=== PATIENT | female | born 1935 | race Caucasian/White ===

== ENCOUNTER 2019-01-30 12:31 | Inpatient (IN) | payer MEDICARE, BC ==
[~2019-01-30] VITALS: Ht 160 cm; Wt 58.5 kg
--- NOTE | 2019-01-30 12:45 | NUR ---
GPS/RN-NOTES ADMITTED 83 Y.O FEMALE PATIENT [facility]. PATIENT ON 5150 FOR GD ADULT. UPON FACE TO FACE ASSESSMENT,PATIENT IS ALERT ORIENTED X2 ,DELUSIONAL AT TIMES . STATED" I JUST HAVE BABY JUST NOW,I ALWAYS TALK TO MY MOTHER WHICH IS ALREADY ".PATIENT IS AMBULATORY WITH STEADY GAIT. PATIENT REFUSED FULL BODY ASSESSMENT, [employer] LIBRARIAN ABLE TO TAKE BOTH HANDS AND RIGHT LOWER LEG PHOTOS. PATIENT REFUSED MRSA NARES SWAB AT THIS TIME. DR. THOMAS MADE AWARE OF THE ADMISSION WITH ORDERS,ALSO DR. SHARMA MADE AWARE AND SEEN THE PATIENT IN THE UNIT. PATIENT RYNE RAI MADE AWARE OF PATIENT DISCHARGE.CONTRABAND DONE,PATIENT REFUSED TO GIVE X1 WRIST WATCH AND X1 YELLOW RING TO THE STAFF FOR SAFE. PATIENT WAS ORIENTED IN THE UNIT AND UNIT POLICIES. PATIENT'S RIGHT WAS REVIEWED WITH PATIENT AND BOOKLET WAS GIVEN TO THE PATIENT. ALL NEEDS ATTENDED AND ANTICIPATED. WILL CONT. MONITORING Q15 MINS. FOR SAFETY AND BEHAVIOR.
[2019-01-30] MEDS ORDERED: MAG HYDROX/AL HYDROX/SIMETH 30 ML UDC PO PRN (14:00)
[2019-01-30] MEDS ORDERED: ACETAMINOPHEN 325 MG TABLET PO PRN (14:00)
[2019-01-30] MEDS ORDERED: MAGNESIUM HYDROXIDE 30 ML UDC PO PRN (14:00)
[2019-01-30] MEDS: LORAZEPAM 0.5 MG TABLET PO PRN (15:07)
--- NOTE | 2019-01-30 15:14 | NUR ---
GPS/RN-NOTES NOTED PATIENT WITH AGGRESSIVE BEHAVIOR GRABBING STAFF HANDS ,DELUSIONAL STATED" I JUST HAVE MY BABY JUST NOW" .REDIRECTED AND REORIENTED PATIENT. ATIVAN I MG P.O GIVEN PRN ORDER. WILL CONT. MONITORING FOR SAFETY AND BEHAVIOR.
[2019-01-30 16:00] VITALS: BP 155/95
--- NOTE | 2019-01-30 17:51 | NUR ---
GPS/RN-NOTES MRSA SWAB DONE AND SEND TO THE LAB.
[2019-01-30 20:09] VITALS: BP 109/66
[2019-01-31 08:00] VITALS: BP 159/97
[2019-01-31 08:06] LABS: CHOLESTEROL 245 mg/dL (<200); HDL CHOLESTEROL 135 mg/dL (40-60); LDL 98 mg/dL (0-99); TRIGLYCERIDES 35 mg/dL (30-150)
[2019-01-31 08:09] LABS: ALANINE AMINOTRANSFERASE 25 U/L (12-78); ALBUMIN 3.5 g/dL (3.4-5.0); ALKALINE PHOSPHATASE 73 U/L (46-116); ASPARTATE AMINOTRANSFERASE 30 U/L (15-37); BILIRUBIN,TOTAL 0.6 mg/dL (0.2-1.0); CALCIUM, SERUM 9.2 mg/dL (8.5-10.1); CARBON DIOXIDE 28 mmol/L (21-32); CHLORIDE 104 mmol/L (98-107); CREATININE 0.8 mg/dL (0.6-1.3); GLUCOSE 83 mg/dL (74-106); SODIUM SERUM 142 mmol/L (136-145); TOTAL PROTEIN, SERUM 7.1 g/dL (6.4-8.2); UREA NITROGEN, BLOOD 20 mg/dL (7-18)
--- NOTE | 2019-01-31 10:50 | NUR ---
SW called the pt's , Hosea ([phone]), and left a message on his voicemail stating that the pt's SW is the one making the contact and that she would like to discuss the pt's initial discharge plan as well as provide the opportunity for the pt's to address any questions or concerns.
--- NOTE | 2019-01-31 10:59 | NUR ---
Initial Discharge Plan: Pt currently resides in her home with her , Hosea ([phone]), located at [address] [place] [address]; ([phone]). Per pt, she would like to return to her home as soon as possible. ELVA will work with the MD and the pt regarding appropriate discharge planning. SW will form a safe and proper discharge.
[2019-01-31] MEDS: VALSARTAN 80 MG TABLET PO SCH (13:00)
--- NOTE | 2019-01-31 13:12 | NUR ---
Hosea ([phone]), pt's , called the SW back and the initial discharge plan was discussed. SW asked whether or not their home was a safe environment for the pt and the pt's said that it was and then it was discussed that the pt have more appointments with her outpatient team. Upon discharge, the pt's stated that he would be willing to pick her up.
[2019-01-31] MEDS: HYDROCHLOROTHIAZIDE 25 MG TABLET PO SCH (13:48)
--- NOTE | 2019-01-31 13:50 | NUR ---
NURSING NOTE: PT IN THE HALLWAY, OFFERED TO TAKE HER BP MEDS, PT ONLY TOOK HCTZ AND REFUSED DIOVAN, STATING "I'LL TAKE IT LATER, I DON'T NEED IT NOW". BP 159/97, HR 77. WILL CONTINUE TO MONITOR.
[2019-01-31] MEDS ORDERED: OLANZAPINE 10 MG VIAL IM STA (14:11)
[2019-01-31] MEDS ORDERED: LORAZEPAM INJ 2 MG/ML VIAL IM STA (14:11)
--- NOTE | 2019-01-31 14:28 | NUR ---
ELVA called the pt's , Hosea ([phone]), and asked him about the pt's prior history such as her prior hospitalizations and the medications that she has been on. ELVA will pass this information on to the pt's psychiatrist on the following day.
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
[2019-01-31 16:00] VITALS: BP 121/75
[2019-01-31 19:50] VITALS: BP 146/86
[2019-01-31] MEDS: OLANZAPINE 5 MG/TAB.RAPDIS PO SCH (21:00)
--- NOTE | 2019-01-31 21:17 | NUR ---
GP-RN NOTES: PATIENT REFUSED SCHEDULED MED ZYPREXA OFFERED X3, DESPITE OF EDUCATION. PATIENT STATED "I DON'T WANT IT, I DON'T NEED IT, I HAVE MY MEDICATION AT HOME. PATIENT STRONGLY REFUSED.
--- NOTE | 2019-01-31 22:00 | NUR ---
PATIENT DIAL 911 AND CALLED CAR HIKER SAYING I AM HAVING EMERGENCY HERE. CAR HIKER CAME AND ASSESS THE PATIENT. PATIENT STATED MY CLOTHS ARE MISSING. THEN CAR HIKER SAID TO THE PATIENT YOU NOT SUPPOSE TO CALL 911 FOR THIS AFTER TALK TO PATIENT CAR HIKER LEFT NURSING OIL LEASE OPERATOR NOTIFY.
[2019-01-31] MEDS: ZOLPIDEM TARTRATE 5 MG TABLET PO PRN (22:08)
[2019-02-01 08:00] VITALS: BP 144/94
[2019-02-01] MEDS: HYDROCHLOROTHIAZIDE 25 MG TABLET PO SCH (09:29)
[2019-02-01] MEDS: OLANZAPINE 5 MG/TAB.RAPDIS PO SCH ×2 (09:29→20:36)
[2019-02-01] MEDS: VALSARTAN 80 MG TABLET PO SCH (09:30)
--- NOTE | 2019-02-01 10:54 | NUR ---
ELVA called the pt's , Hosea ([phone]), and informed him that he can no longer visit outside of visiting hours due to the effect that it has on the pt and the lack of staff available to calm her down after all of it. ELVA informed him that he would have to come during the specific visiting hours and that he can give her a call back in case of any questions.
[2019-02-01 16:00] VITALS: BP 122/76
[2019-02-01 19:48] VITALS: BP 155/89
[2019-02-01 20:00] VITALS: BP 155/89
--- NOTE | 2019-02-01 20:37 | NUR ---
GPS/FISHER HAND LINE NOTES: PT. REFUSED HS MEDS. OFFERED 3X. EXPLAINED RISK AND BENEFITS. PT. STILL REFUSED. WILL CONTINUE TO MONITOR Q 15MIN FOR SAFETY AND BEHAVIOR.
[2019-02-02] MEDS: OLANZAPINE 5 MG/TAB.RAPDIS PO SCH ×3 (08:24→21:00)
[2019-02-02] MEDS: HYDROCHLOROTHIAZIDE 25 MG TABLET PO SCH (08:28)
[2019-02-02] MEDS: VALSARTAN 80 MG TABLET PO SCH (08:28)
--- NOTE | 2019-02-02 09:48 | NUR ---
WOUND CARE CONSULT: PT PRESENTS AMBULATORY AND CONTINENT WITH SKIN TEAR TO LEFT FOREARM, PRESENT ON ADMISSION. RECOMMENDATIONS MADE FOR WOUND CARE. DISCUSSED WITH NURSING STAFF. WILL SEE PRTraci . CURRENT SANCHEZ SCORE IS 21. Addendum: 02/02/19 at 0949 by SUAD GONZALEZ WNDNU Amended: Links added.
--- NOTE | 2019-02-02 09:59 | NUR ---
GPS MILL WORKER: NOTES TX DONE TO SKIN TEAR ORDERED.
[2019-02-02 16:00] VITALS: BP 118/82
[2019-02-02] MEDS: ZOLPIDEM TARTRATE 5 MG TABLET PO PRN (20:37)
--- NOTE | 2019-02-02 22:35 | NUR ---
AT 2100, REFUSED OLANZAPINE 5 MG ROUTINE NIGHT MEDICATION. EXPLAINED BENEFITS X2, PATIENT WAS VERY SARCASTIC, STILL REFUSED.
[2019-02-03 08:00] VITALS: BP 159/94
[2019-02-03] MEDS: OLANZAPINE 5 MG/TAB.RAPDIS PO SCH ×2 (08:30→21:00)
[2019-02-03] MEDS: VALSARTAN 80 MG TABLET PO SCH (08:30)
[2019-02-03] MEDS: HYDROCHLOROTHIAZIDE 25 MG TABLET PO SCH (08:30)
[2019-02-03 16:00] VITALS: BP 99/72
--- NOTE | 2019-02-03 22:13 | NUR ---
PATIENT REFUSED HER OLANZAPINE 2.5 MG TONIGHT, STATED," NO THANK YOU, NOT TONIGHT."
[2019-02-04 08:00] VITALS: BP 159/97
[2019-02-04] MEDS: HYDROCHLOROTHIAZIDE 25 MG TABLET PO SCH (09:00)
[2019-02-04] MEDS: OLANZAPINE 5 MG/TAB.RAPDIS PO SCH ×2 (09:00→21:00)
[2019-02-04] MEDS: VALSARTAN 80 MG TABLET PO SCH ×2 (09:00→09:28)
--- NOTE | 2019-02-04 09:30 | NUR ---
GPS RN NOTE: PATIENT REFUSED AM MEDICATION ZYPREXA, HYDROCHLOROTHIAZIDE AND DIOVAN. PATIENT PARANOID, DELUSIONAL AND WANTED HER MEDICATION PRESCRIBED BY HER OWN DOCTOR FROM [facility]. EXPLAINED THE RISK AND BENEFITS X 3 ATTEMPT BUT PATIENT STILL REFUSED. CN ATTEMPTED TO OFFER BUT PATIENT STILL REFUSED. WILL CONTINUE TO MONITOR [id number] FOR SAFETY
[2019-02-04] MEDS: LORAZEPAM 0.5 MG TABLET PO PRN (12:00)
[2019-02-04 16:00] VITALS: BP 150/94
[2019-02-04 19:28] VITALS: BP 123/75
[2019-02-05 08:00] VITALS: BP 126/71
[2019-02-05] MEDS: OLANZAPINE 5 MG/TAB.RAPDIS PO SCH ×2 (09:09→21:24)
[2019-02-05] MEDS: VALSARTAN 80 MG TABLET PO SCH (09:10)
[2019-02-05] MEDS: HYDROCHLOROTHIAZIDE 25 MG TABLET PO SCH (09:10)
--- NOTE | 2019-02-05 12:05 | NUR ---
ELVA called the pt's , Hosea ([phone]), and informed him that the pt is going to be having a Probable Cause Hearing today which means that a cabinet worker from [facility] would arrive at the unit and look through the pt's chart to determine whether or not the pt should continue to be on her hold. ELVA informed the pt's that he is more than welcome to join the hearing and advocate for the pt and himself. Pt's stated that he would not be available for the hearing but that he would like to be updated in terms of the outcome.
[2019-02-05 16:00] VITALS: BP 135/80
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
[2019-02-05] MEDS: LORAZEPAM 0.5 MG TABLET PO PRN (18:05)
--- NOTE | 2019-02-05 18:06 | NUR ---
RN-CO: ATIVAN 1 MG PO FOR AGITATION GIVEN.
[2019-02-05 19:38] VITALS: BP 116/78
[2019-02-06 08:00] VITALS: BP 105/57
[2019-02-06] MEDS: VALSARTAN 80 MG TABLET PO SCH (09:00)
[2019-02-06] MEDS: HYDROCHLOROTHIAZIDE 25 MG TABLET PO SCH (09:00)
[2019-02-06] MEDS: LORAZEPAM 0.5 MG TABLET PO PRN (09:24)
[2019-02-06] MEDS: OLANZAPINE 5 MG/TAB.RAPDIS PO SCH (09:24)
--- NOTE | 2019-02-06 11:05 | NUR ---
ELVA called the pt's , Hosea ([phone]), and informed him that the pt is going to be discharged today. Pt's stated that he was grateful for this because the pt has a psychiatric appointment scheduled for the following day.
--- NOTE | 2019-02-06 15:34 | NUR ---
ELVA faxed the appropriate discharge paperwork to Dr. Tres Worthy to the fax number: [phone].
--- NOTE | 2019-02-06 15:45 | NUR ---
Discharge Note: Pt was discharged home to [address] [place] [address]. Pt was picked up by her , Hosea ([phone]), around 4pm. Upon discharge, the pt appeared to be in a euthymic mood and presented with a calm affect. Pt denied both suicidal and homicidal ideation as well as auditory and visual hallucinations. Pt stated that she was content about being discharged back home to her . Pt will be under the care of her psychiatrist, Dr. Tres Worthy, located at [address] [place] [address]; ([phone]). Pt has an appointment with her psychiatrist on 02/07/19 at 10AM and the appropriate paperwork was faxed to the office fax number: [phone]. Pt will also be under the care of her director of programming, Dr. Phu Goodson, located [address] [place] [address]; .
[2019-02-06 16:00] VITALS: BP 107/66
--- NOTE | 2019-02-06 16:45 | NUR ---
ms rn patient went home accompanied by , all needs attended, discharge instructions given and understood, prescriptions given and explained, understood,no distress noted.
== END 2019-02-06 16:40 | disposition home or self-care (01) | DRG 885 ==
LOC: GPS 12:31
PROVIDERS: ADMIT Psychiatry & Neurology Psychiatry; ATTEND Internal Medicine
DX: F29 Unspecified psychosis not due to a substance or known physiological condition (principal); F23 Brief psychotic disorder; F41.9 Anxiety disorder, unspecified; F31.9 Bipolar disorder, unspecified; I10 Essential (primary) hypertension
CPT/HCPCS: 36415; 80053-TC; 80061-TC; 87081-TC; J2060; J3490